=== PATIENT | male | born 1970 | race Two or more races ===

== ENCOUNTER 2021-04-18 13:13 | Emergency (ER) | payer OTHER ==
[~2021-04-18] VITALS: Ht 157.5 cm; Wt 89.8 kg
[2021-04-18 14:32] VITALS: BP 122/85
[2021-04-18] MEDS ORDERED: HYDROcodone-ACET 10/325MG TAB PO ONE (15:45)
== END 2021-04-18 16:06 | disposition home or self-care (01) ==
LOC: ER 13:13
DX: S82.132A Displaced fracture of medial condyle of left tibia, initial encounter for closed fracture (principal); E11.9 Type 2 diabetes mellitus without complications; I10 Essential (primary) hypertension; E78.5 Hyperlipidemia, unspecified; Z88.8 Allergy status to other drugs, medicaments and biological substances; W19.XXXA Unspecified fall, initial encounter; Y93.89 Activity, other specified; Y92.89 Other specified places as the place of occurrence of the external cause; Y99.8 Other external cause status
CPT/HCPCS: 29505; 73562; 73700